=== PATIENT | male | born 1985 | race Caucasian/White ===

== ENCOUNTER 2018-01-01 06:42 | Inpatient (IN) | payer OTHER ==
[2018-01-01] MEDS ORDERED: HYDROmorphONE 0.5 MG/0.5 ML SYG IV (07:05)
[2018-01-01] MEDS: ONDANSETRON 4 MG INJ IV ×2 (07:21→12:33)
[2018-01-01] MEDS: morphine 4 MG/ML VIAL IV (07:21)
[2018-01-01] MEDS: SOD CHLORIDE 0.9% 1,000 ML IV ×2 (07:21→12:34)
[2018-01-01 07:31] LABS: ADD MAN DIFF? NO
[2018-01-01 07:40] LABS: BASOPHILS % 0.2 % (0.0-2.0); HEMATOCRIT 36.4 % (42.0-52.0); LYMPHOCYTES % 8.3 % (15.0-51.0); MEAN CORPUSCULAR HEMOGLOBIN 30.2 pg (29.0-33.0); MEAN CORPUSCULAR HGB CONC 35.7 g/dl (32.0-37.0); MEAN CORPUSCULAR VOLUME 84.7 fl (82.0-101.0); MONOCYTE # 0.8 10^3/ul (0.3-0.9); NEUTROPHIL # 10.7 10^3/ul (1.6-7.5); NEUTROPHILS % 85.1 % (39.0-77.0); PLATELET COUNT 230 10^3/UL (140-415); RED CELL DISTRIBUTION WIDTH 12.2 % (11.5-14.5)
[2018-01-01 07:40] LABS: WHITE BLOOD COUNT 12.6 10^3/ul (4.8-10.8)
[2018-01-01 08:04] LABS: ALANINE AMINOTRANSFERASE 35 IU/L (13-69); ALBUMIN 4.8 g/dl (3.3-4.9); ALBUMIN/GLOBULIN RATIO 1.65; ALKALINE PHOSPHATASE 76 IU/L (42-121); ANION GAP 18 (8-16); ASPARTATE AMINO TRANSFERASE 26 IU/L (15-46); BILIRUBIN,INDIRECT 0.3 mg/dl (0-1.1); BILIRUBIN,TOTAL 0.3 mg/dl (0.2-1.3); BLOOD UREA NITROGEN 11 mg/dl (7-20); CALCIUM 9.4 mg/dl (8.4-10.2); CARBON DIOXIDE 25 mmol/L (21-31); CHLORIDE 101 mmol/L (97-110); CREATININE 0.71 mg/dl (0.61-1.24); GLUCOSE 138 mg/dl (70-220); POTASSIUM 3.9 mmol/L (3.5-5.1); SODIUM 140 mmol/L (135-144); TOTAL PROTEIN 7.7 g/dl (6.1-8.1)
[2018-01-01] MEDS: HYDROmorphONE 0.5 MG/0.5 ML SYG IV ×5 (08:16→16:25)
[2018-01-01] MEDS: morphine (ER) 15 MG TAB PO (14:39)
[2018-01-01] MEDS: HYDROCODONE/APAP (7.5/325) TAB PO (17:29)
[2018-01-01] MEDS ORDERED: ALPRAZOLAM 0.5 MG TAB PO (17:30)
[2018-01-01] MEDS: HYDROmorphONE 0.2 MG/ML PCA IV ×2 (18:30→23:34)
[2018-01-01] MEDS: ALPRAZOLAM 0.5 MG TAB PO (19:37)
[2018-01-01] MEDS: INFLUENZA VIRUS VACCINE 0.5 ML SYG IM* (20:00)
[2018-01-01] MEDS: SENNA/DOCUSATE NA (8.6MG/50MG) TAB PO (20:38)
[2018-01-01] MEDS ORDERED: MAGNESIUM CITRATE 300 ML BTL PO (21:00)
[2018-01-02] MEDS ORDERED: ALPRAZOLAM 0.5 MG TAB PO
[2018-01-02] MEDS: HYDROmorphONE 0.5 MG/0.5 ML SYG IV (00:54)
[2018-01-02] MEDS: ALPRAZOLAM 0.5 MG TAB PO ×2 (01:40→11:35)
[2018-01-02] MEDS: HYDROmorphONE 0.2 MG/ML PCA IV ×3 (05:50→17:30)
[2018-01-02 05:52] LABS: ADD MAN DIFF? NO
[2018-01-02 05:59] LABS: BASOPHILS % 0.3 % (0.0-2.0); EOSINOPHILS % 0.3 % (0.0-7.0); HEMATOCRIT 36.5 % (42.0-52.0); HEMOGLOBIN 12.9 g/dl (14.0-18.0); LYMPHOCYTES # 1.4 10^3/ul (0.8-2.9); LYMPHOCYTES % 14.8 % (15.0-51.0); MEAN CORPUSCULAR HEMOGLOBIN 30.7 pg (29.0-33.0); MEAN CORPUSCULAR HGB CONC 35.3 g/dl (32.0-37.0); MEAN CORPUSCULAR VOLUME 86.9 fl (82.0-101.0); MEAN PLATELET VOLUME 10.5 fl (7.4-10.4); MONOCYTE # 1.1 10^3/ul (0.3-0.9); MONOCYTES % 11.6 % (0.0-11.0); NEUTROPHIL # 6.9 10^3/ul (1.6-7.5); NEUTROPHILS % 72.7 % (39.0-77.0); PLATELET COUNT 205 10^3/UL (140-415); RED CELL DISTRIBUTION WIDTH 12.5 % (11.5-14.5)
[2018-01-02 05:59] LABS: WHITE BLOOD COUNT 9.4 10^3/ul (4.8-10.8)
[2018-01-02 06:18] LABS: ANION GAP 18 (8-16); BLOOD UREA NITROGEN 7 mg/dl (7-20); CALCIUM 9.5 mg/dl (8.4-10.2); CARBON DIOXIDE 30 mmol/L (21-31); CHLORIDE 99 mmol/L (97-110); CREATININE 0.77 mg/dl (0.61-1.24); GLUCOSE 117 mg/dl (70-220); POTASSIUM 3.8 mmol/L (3.5-5.1); SODIUM 143 mmol/L (135-144); URIC ACID 3.4 mg/dl (3.1-7.9)
[2018-01-02] MEDS: FAMOTIDINE 20 MG TAB PO (09:01)
[2018-01-02] MEDS: SENNA/DOCUSATE NA (8.6MG/50MG) TAB PO ×2 (09:01→21:06)
[2018-01-02] MEDS: ACETAMINOPHEN 500 MG TAB PO ×3 (11:35→20:07)
[2018-01-02] MEDS: ONDANSETRON 4 MG INJ IV (13:30)
[2018-01-02] MEDS: POLYETHYLENE GLYCOL 17 GM PACKET PO (17:36)
[2018-01-03] MEDS: ACETAMINOPHEN 500 MG TAB PO ×2 (00:09→05:45)
[2018-01-03] MEDS: ALPRAZOLAM 0.5 MG TAB PO ×2 (00:11→18:51)
[2018-01-03] MEDS: ONDANSETRON 4 MG INJ IV ×2 (00:20→21:09)
[2018-01-03] MEDS: LORAZEPAM 2 MG INJ IV (03:00)
[2018-01-03] MEDS: HYDROmorphONE 0.5 MG/0.5 ML SYG IV ×2 (06:15→21:09)
[2018-01-03] MEDS: FAMOTIDINE 20 MG TAB PO (08:25)
[2018-01-03] MEDS: SENNA/DOCUSATE NA (8.6MG/50MG) TAB PO ×2 (09:25→20:15)
[2018-01-03] MEDS: LIDOCAINE 5% PATCH TD (11:27)
[2018-01-03] MEDS: HYDROmorphONE 0.2 MG/ML PCA IV (11:34)
[2018-01-03] MEDS: OXYCODONE/ACETAMINOPHEN (10/325) TAB PO ×3 (12:01→20:45)
[2018-01-03] MEDS ORDERED: HYDROmorphONE 0.5 MG/0.5 ML SYG IV (18:47)
[2018-01-03] MEDS: METOPROLOL 25 MG TAB PO ×2 (20:14→22:56)
[2018-01-04] MEDS: OXYCODONE/ACETAMINOPHEN (10/325) TAB PO ×4 (00:32→23:40)
[2018-01-04] MEDS: HYDROmorphONE 0.2 MG/ML PCA IV (01:58)
[2018-01-04] MEDS: ONDANSETRON 4 MG INJ IV (07:21)
[2018-01-04] MEDS: FAMOTIDINE 20 MG TAB PO (09:49)
[2018-01-04] MEDS: SENNA/DOCUSATE NA (8.6MG/50MG) TAB PO ×2 (09:49→23:41)
[2018-01-04] MEDS: LIDOCAINE 5% PATCH TD (09:50)
[2018-01-04] MEDS: ALPRAZOLAM 0.5 MG TAB PO (10:57)
[2018-01-04] MEDS: LACTULOSE 30ML CUP PO (16:11)
[2018-01-04] MEDS: LIDOCAINE 1% (MDV) 10 ML INJ INJ (18:08)
[2018-01-04 19:10] LABS: SYN FLD PMN % 89.7 % (0.0-25.0); SYN FLD WBC 10230 /cmm (0-150)
[2018-01-04 21:10] LABS: SYN FLD MN % 10.3 &
[2018-01-04 21:11] LABS: SYN FLD SOURCE OTHER
[2018-01-04 21:12] LABS: SYN FLD CLARITY CLOUDY
[2018-01-04 21:22] LABS: SYN FLD COLOR RED; SYN FLD CRYSTALS NO CRYSTALS SEEN (None seen)
[2018-01-05] MEDS: ALPRAZOLAM 0.5 MG TAB PO (00:06)
[2018-01-05] MEDS: SOD CHLORIDE 0.9% 500 ML IV (02:16)
[2018-01-05] MEDS: OXYCODONE/ACETAMINOPHEN (10/325) TAB PO ×2 (03:34→09:51)
[2018-01-05] MEDS: LIDOCAINE 5% PATCH TD (09:00)
[2018-01-05] MEDS: SENNA/DOCUSATE NA (8.6MG/50MG) TAB PO (09:00)
[2018-01-05] MEDS: FAMOTIDINE 20 MG TAB PO (09:00)
== END 2018-01-05 11:05 | disposition home or self-care (01) | DRG 948 ==
LOC: FTE 06:42 → PP2 10:59
DX: G89.18 Other acute postprocedural pain (principal); K59.00 Constipation, unspecified; F41.9 Anxiety disorder, unspecified; R00.0 Tachycardia, unspecified; R07.89 Other chest pain
CPT/HCPCS: 36415; 73562; 80048; 80053; 84560; 85025; 87070; 89060; 90686; 96374; 96375; 96376; 99285-25; G0378